=== PATIENT | female | born 1950 | race Asian ===

== ENCOUNTER → 2016-10-27 | Outpatient (CLI) | payer BC ==
--- NOTE | 2016-10-27 19:08 | MA ---
Screening Digital Mammogram Clinical Indications: Routine screening. Technique: Standard cephalocaudal and mediolateral oblique projections are obtained. This examinati on is processed by the [employer] computer-aided detection system. Comparison: October 24, 2015, September 25, 2014, August 11, 2013. Breast density: 2; 25 to 50%. Findings: CAD was reviewed. No suspicious findings are identified. Impression: Negative mammogram. BI-RADS 1. Recommendation: Routine screening is recommended in one year. [facility] will send a result letter to the patient. Negative mammography should not preclude additional workup of a clinically suspicious finding. The patient's information is entered into a reminder system with a target due date for her next mammo gram.
== END ==
LOC: BRMIMAGING 12:49
DX: Z12.31 Encounter for screening mammogram for malignant neoplasm of breast (principal)
CPT/HCPCS: G0202

== ENCOUNTER → 2017-11-08 | Outpatient (CLI) | payer BC | LOC: BRMIMAGING 13:17 | PROVIDERS: ATTEND Family Medicine | DX: Z12.31 Encounter for screening mammogram for malignant neoplasm of breast (principal) ==

== ENCOUNTER → 2018-11-09 | Outpatient (CLI) | payer BC | LOC: BRMIMAGING 12:43 | PROVIDERS: ATTEND Family Medicine | DX: Z12.31 Encounter for screening mammogram for malignant neoplasm of breast (principal) ==